=== PATIENT | male | born 1975 | race Two or more races ===

== ENCOUNTER 2018-05-12 10:17 | Emergency (ER) | payer SELFPAY, MEDICAID ==
[2018-05-12] MEDS: LIDOCAINE 1%/EPI (MDV) 50 ML INJ INJ (11:30)
[2018-05-12] MEDS: DIPHTH/TET/ACEL PERTUSS (ADULT) 0.5 ML VIAL IM* (11:40)
== END 2018-05-12 11:49 | disposition home or self-care (01) ==
LOC: FTE 10:17
DX: S40.851A Superficial foreign body of right upper arm, initial encounter (principal); W60.XXXA Contact with nonvenomous plant thorns and spines and sharp leaves, initial encounter; Y92.9 Unspecified place or not applicable; Z23 Encounter for immunization
CPT/HCPCS: 90471; 90715; 99283-25

== ENCOUNTER 2018-12-19 12:43 | Emergency (ER) | payer MEDICAID | END 2018-12-19 17:29 | disposition home or self-care (01) | LOC: FTE 12:43 | DX: R42 Dizziness and giddiness (principal) | CPT/HCPCS: 70450; 82962; 93005; 99284-25 ==